=== PATIENT | male | born 1980 | race Caucasian/White ===

== ENCOUNTER 2024-06-04 14:55 | Outpatient (AMB) | payer OTHER, SELFPAY ==
--- NOTE | 2024-06-04 14:57 | MHC.PC.OV ---
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 ?? Prior PCP:?Abraham Luz Maria Last office visit/CPE:? 7-8 mos checkup. CPE > 1 yr Acute issue(s):? Weakness/Fall x 3. Pt feels a brief tightness in low back and then weaknsess and falls down. 1st episode during Mowing lawn and after long walks. 2nd episode walking but < 1mile. No precceding sensations. 3rd episode was Jan 2024. [employer] and stepping onto Escalator. No loss of urine or glen Had Xray of low back at [facility] in December 2023 - Negative. ?? 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 SurgHx:? Colonscopy December for Strong FH ColonCA FHx:? Mom: Mom: Breast CA, Stomach Mass (benign), Brain tumor. Dad: Pacemaker, Skin CA. Maternal GPs: Colon CA SocHx: Nonsmoker. EtOH 2-3 about 2 days a week. 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 1. Little interest or pleasure in doing things: not at all 2. Feeling down, depressed, or hopeless: not at all 3. Trouble falling or staying asleep, or sleeping too much: not at all 4. Feeling tired or having little energy: several days 5. Poor appetite or overeating: not at all 6. Feeling bad about yourself - or that you are a failure or have let yourself or your family down: not at all 7. Trouble concentrating on things, such as reading the newspaper or watching television: not at all 8. Moving or speaking so slowly that other people could have noticed. Or the opposite - being so fidgety or restless that you have been moving around a lot more than usual: not at all 9. Thoughts that you would be better off or of hurting yourself in some way: not at all Total score: 1 Depression Screening Interpretation: Negative Depression Screening Done: Yes 42225 - PHQ-9 Billing: Yes Source: Developed by Drs. Bob Kam, Jossy Romero, Deon Puente and colleagues, with an educational mai from [employer]. Thrive Questionnaire Date Thrive assessed: 06/04/24 I am a: Patient What is your living situation today?: I have a steady place to live Within the past 12 months, did the food you bought not last and you didn't have the money to get more?: Never true Within the past 12 months, did you worry whether your food would run out before you got money to buy more?: Never true Do you have trouble paying for medicines?: No Do you have trouble getting transportation to medical appointments?: No Do you have trouble paying your heating and electricity bill?: No Do you have trouble taking care of your child, family member or friend?: No Do you have trouble with day-to-day activities such as bathing, preparing meals, shopping, managing finances, etc.?: No Are you currently unemployed and looking for a job?: No Are you interested in more education?: No Please select the resources that you would like help with: None Currently or been in a relationship where the following occur: No concerns reported THRIVE Score: 0 AUDIT C Alcohol Use Questionnaire (AUDIT-C) 1. How often do you have a drink containing alcohol?: 2-3 times a week 2. How many drinks containing alcohol do you have on a typical day when you are drinking?: 3 or 4 3. How often do you have six or more drinks on one occasion?: Less than monthly Total Score: 5 ABEL-7 AMB Questionnaire ABEL-7 Date ABEL - 7 assessed: 06/04/24 Feeling nervous, anxious, or on edge: 3 = Nearly every day Not being able to stop or control worryin = Several days Worrying too much about different things: 1 = Several days Trouble relaxin = Several days Being so restless that it is hard to sit still: 0 = Not at all Becoming easily annoyed or irritable: 0 = Not at all Feeling afraid as if something awful might happen: 0 = Not at all Total ABEL-7 score (0-4 normal; 5-9 mild; 10-14 moderate; 15-21 severe): 6 Source: Developed by Drs. Bob Kam, Jossy Romero, Deon Puente and colleagues, with an educational mai from [employer]. ABEL-7 Assessment Billing ABEL-7 Assessment Tool: ABEL-7 Assessment 81311 Review of Systems Const Denies chills, Denies fatigue, Denies fever(s), Denies headache(s) and Denies weakness ENT Denies dizziness and Denies headache(s) Card Denies chest pain, Denies lightheadedness, Denies dyspnea and Denies other (Palpitations) Resp Denies cough, Denies dyspnea, Denies wheezing and Denies other ( shortness of breath) Musc Denies numbness and Denies tingling Neuro Denies dizziness, Denies headache(s), Denies numbness, Denies tingling, Denies paresthesias and Denies weakness Psych Denies anxiety and Denies depression Endo Denies fatigue Aller/Immun Denies wheezing Physical exam (Primary Care) Vital Signs: Last Vital Signs Temp 98.0 F 06/04/24 15:18 Pulse 73 06/04/24 15:18 Resp 16 01/09/25 15:18 BP 127/77 06/04/24 15:18 Pulse Ox 98 06/04/24 15:18 Oxygen Delivery Method Room Air 06/04/24 15:18 BMI result Body Mass Index 33.0 Tobacco/Smoking Status: Tobacco use Status Tobacco use date assessed 06/04/24 06/04/24 15:18 Patient Tobacco Use Status Never used Tobacco 06/04/24 15:18 e-Cigarette/Vaping Use Never Used 06/04/24 15:18 PHQ-9: PHQ-9 Score PHQ-9: Total score 1 06/04/24 15:49 Depression Screening Interpretation: Negative Thrive Assessment: Date of Thrive Assessment Date Thrive assessed 06/04/24 06/04/24 14:58 Currently or been in a relationship where the following occur: No concerns reported Const General: no acute distress and well developed Nutritional Appearance: well nourished Orientation/consciousness: patient oriented x3 HENMT Head: Yes normocephalic and Yes atraumatic Eyes General: appearance normal, both eyes and all related structures Pupils: Equal, round and reactive pupils present EOM: EOMs intact bilaterally Resp Effort & Inspection: normal respiratory effort Auscultation: clear to auscultation bilaterally Cardio Rate: regular rate Rhythm: regular rhythm Heart sounds: S1 normal heart sound present, S2 normal heart sound present, no gallops, no murmurs and no rubs Neuro Other: Increased shakiness with extension of his leg against resistance on the L L 1+ reflex, R 3+ reflex General: patient oriented x3 Cranial nerves: Yes Equal, round and reactive pupils present Psych Affect: normal affect Coding Level of Care Code New Pt Level 4 (00462) Diagnoses Lower extremity weakness R29.898 Fall W19.XXXA Abnormal reflexes of lower extremity R29.2 Back pain M54.9 History of seizure Z87.898 Laboratory exam ordered as part of routine general medical examination Z00.00 Additional Codes ABEL-7 Assessment Billing - ABEL-7 Assessment Tool: ABEL-7 Assessment 36837 ([id number]) PHQ-9 - 28047 - PHQ-9 Billing: Yes ([id number]) Assessment & Plan Assessment & Plan (1) Lower extremity weakness: Code(s): R29.898 - Other symptoms and signs involving the musculoskeletal system Category: Medical Plan: Lower?extremity?weakness?and?fall?times?3, possibly?associated?with?exertion. However,?patient?does?have?a?history?of?petite?mal?seizures?as?a?child Patient?does?seem?to?have?some?lower?extremity?weakness?and?shakiness?with?extension?of?his?leg?against?resistance?on?the?left?and?also?some?diminished?reflex?at?left?verses?right. Denies?any?loss?of?bowel?or?bladder?function. No?weakness,?dizziness?or?diaphoresis. Had?x-rays?and?I?will?request?them. Will?refer?to?Neurology?to?consider?EMG?or?imaging. Advised?he?go?to?the?ED?if?this?occurs?again. Also?checking?labs?including?CBC,?inflammatory?markers?autoimmune?markers?and?Lyme?titer (2) Fall: Code(s): W19.XXXA - Unspecified fall, initial encounter Category: Medical Plan: As?above (3) Abnormal reflexes of lower extremity: Code(s): R29.2 - Abnormal reflex Category: Medical Plan: As?above (4) Back pain: Code(s): M54.9 - Dorsalgia, unspecified Category: Medical Plan: Leave?very?brief?low?back?pain?or?tightness?just?prior?to?weakness?in?legs?and?fall. Awaiting?x-rays Refer?to?Urology (5) History of seizure: Code(s): Z87.898 - Personal history of other specified conditions Category: Medical Plan: As?above (6) Laboratory exam ordered as part of routine general medical examination: Code(s): Z00.00 - Encounter for general adult medical examination without abnormal findings Category: Medical Plan: Check?labs Orders: Orders Comprehensive [place]. Panel Fast 06/04/24 Z00.00 - Encounter for general adult medical examination without abnormal findings UA and rflx microscopic 06/04/24 Z00.00 - Encounter for general adult medical examination without abnormal findings TSH reflex Free T4 06/04/24 Z00.00 - Encounter for general adult medical examination without abnormal findings Erythrocyte Sedimentation Rate 06/04/24 R29.898 - Other symptoms and signs involving the musculoskeletal system CRP High Sensitivity 06/04/24 R29.898 - Other symptoms and signs involving the musculoskeletal system NIKI Reflex Titer and Pattern 06/04/24 R29.898 - Other symptoms and signs involving the musculoskeletal system Lyme IgG/IgM w/reflex to WB 06/04/24 R29.898 - Other symptoms and signs involving the musculoskeletal system Lipid Panel 06/04/24 Z00.00 - Encounter for general adult medical examination without abnormal findings Microalbumin, Random (w Creat) 06/04/24 I10 - Essential (primary) hypertension Prostate Specific Antigen Scr 06/04/24 Z12.5 - Encounter for screening for malignant neoplasm of prostate Complete Blood Count Auto Diff 06/04/24 R29.898 - Other symptoms and signs involving the musculoskeletal system, Z00.00 - Encounter for general adult medical examination without abnormal findings Referrals Neurology Referral R29.898 - Other symptoms and signs involving the musculoskeletal system, W19.XXXA - Unspecified fall, initial encounter, Z87.898 - Personal history of other specified conditions
[2024-06-04 15:18] VITALS: BP 127/77; PULSE 73; RESP 16; TEMP 36.7; O2SAT 98; BMI 33.0
== END 2024-06-04 16:18 | disposition home or self-care (01) ==
PROVIDERS: PCP Family Medicine; Visit Provider Family Medicine
DX: R29.898 Other symptoms and signs involving the musculoskeletal system (principal); W19.XXXA Unspecified fall, initial encounter; R29.2 Abnormal reflex; M54.9 Dorsalgia, unspecified; Z87.898 Personal history of other specified conditions; Z00.00 Encounter for general adult medical examination without abnormal findings

== ENCOUNTER → 2024-06-04 14:55 | Outpatient (BNVA) | payer OTHER, SELFPAY | PROVIDERS: Visit Provider Family Medicine | DX: R29.898 Other symptoms and signs involving the musculoskeletal system (principal); R29.2 Abnormal reflex; M54.50 Low back pain, unspecified; Z87.898 Personal history of other specified conditions; Z91.81 History of falling | CPT/HCPCS: 96127 ==

== ENCOUNTER 2024-07-04 08:30 | Outpatient (REF) | payer OTHER, SELFPAY ==
[2024-07-04 09:40] LABS: MANUAL DIFF FLAG NO
[2024-07-04 10:51] LABS: Basophils Percent Auto 0.6 % (0-2); Eosinophils Absolute Auto 0.1 X10*3/uL (0.0-0.4); Eosinophils Percent Auto 0.8 % (0-4); Hemoglobin 15.4 g/dl (14.0-18.0); Imm Gran Abs Auto 0.03 X10*3/uL (0.00-0.03); Imm Gran Pct Auto 0.5 % (0.0-0.4); Lymphocytes Absolute Auto 1.6 X10*3/uL (1.2-4.9); Lymphocytes Percent Auto 25.6 % (20-40); Mean Corpuscular HGB Conc 34.2 g/dl (31.0-36.0); Mean Corpuscular Hemoglobin 31.1 pg (27.0-33.0); Mean Corpuscular Volume 90.9 fL (80.0-98.0); Mean Platelet Volume 10.3 fL (9.4-12.4); Monocytes Absolute Auto 0.6 X10*3/uL (0.1-1.2); Monocytes Percent Auto 8.9 % (2-11); Neutrophils Absolute Auto 3.9 x10*3/uL (2.0-8.3); Neutrophils Percent Auto 63.6 % (45-73); Platelet Count 230 X10*3/uL (160-400); Red Blood Count 4.95 X10*6/uL (4.60-5.80); Red Cell Distribution Width 12.6 % (11.0-16.0); White Blood Count 6.2 X10*3/uL (4.8-10.8)
[2024-07-04 11:31] LABS: Erythrocyte Sedimentation Rate 5 MM/HR (0-15)
[2024-07-04 11:56] LABS: Alanine Aminotransferase 62 U/L (0-40); Albumin Level 4.7 g/dL (3.5-5.0); Alkaline Phosphatase 71 U/L (39-117); Anion Gap 12 (12-20); Aspartate Amino Transferase 32 U/L (5-37); Bilirubin Total 0.6 mg/dL (0.0-1.0); Blood Urea Nitrogen 14 mg/dL (9-16); Calcium 9.1 mg/dL (8.4-10.2); Carbon Dioxide 26 mmol/L (22-29); Chloride 107 mmol/L (96-108); Cholesterol 216 mg/dL (<200); Estimated Glomerular Filt Rate > 60; Glucose Fasting 94 mg/dL (60-99); HDL Cholesterol 49 mg/dL (>40); LDL Cholesterol Calculated 154 mg/dL (<100); Potassium 4.5 mmol/L (3.3-5.1); Sodium 140 mmol/L (135-145); TSH reflex Free T4 0.51 uIU/mL (0.32-4.0); Total Protein 7.9 g/dL (6.5-8.0); Triglycerides 66 mg/dL (<150)
[2024-07-04 12:02] LABS: Prostate Specific Antigen Scr 0.41 ng/mL (<0.05-4.0)
[2024-07-06 07:47] LABS: CRP High Sensitivity 0.5 mg/L
[2024-07-06 22:44] LABS: Lyme Abs Screen <0.90 index
[2024-07-10 14:29] LABS: Anti Nuclear Antibody Screen NEGATIVE (NEGATIVE)
== END 2024-07-04 08:31 | disposition home or self-care (01) ==
LOC: HO.LAB 08:30
PROVIDERS: PCP Family Medicine; Visit Provider Family Medicine
DX: Z00.00 Encounter for general adult medical examination without abnormal findings (principal); R29.898 Other symptoms and signs involving the musculoskeletal system; Z12.5 Encounter for screening for malignant neoplasm of prostate
CPT/HCPCS: 36415; 80053; 80061; 84153; 84443; 85025; 85652; 86038; 86141; 86617; 86618

== ENCOUNTER 2024-07-09 13:54 | Outpatient (AMB) | payer OTHER, SELFPAY ==
--- NOTE | 2024-07-09 14:12 | A.OFFPC_ITS ---
Vital Signs 07/09/24 14:20 Height 6 ft Weight 243 lb 6 oz BMI 33.0 BP 126/78 Blood Pressure Location Lt brachial Position Sitting Respiration 14 Pulse 66 Pulse Source Pulse Oximeter Temp 97.5 F Temp Source Oral Pulse Oximetry (%) 97 Oxygen Delivery Method Room Air Intake Visit Reasons: CPE with f/u labs and health maint Intake Note: CPE and lab review Allergies No Known Allergies Allergy (Verified 07/09/24 14:14) Medication List - Last Reconciled 07/09/24 by Marco Merchant MD No Known Home Meds Tobacco use date assessed: 07/09/24 Dental Screening Dental Screen Date: 07/09/24 Did you have a dental visit in the last 12 months?: Yes Did you have a dental problem in the last 6 months where you did not have access to dental care?: Yes Was dental information given to patient?: No HPI CPE with f/u labs and health maint HPI Details 43 y/o male presents for a CPE with f/u labs and health maintenance. Labs drawn 07/04/24. Reviewed labs with pt. Elevated ALT of 62. Triglycerides 66. TC 216. LDL 154. HDL 49. PSA 0.41. Had referred him to Neurology for lower extremity weakness, abnormal reflexes of LE. HPI Comments History of Present Illness Details Documentation assistance for Marco Merchant MD, was provided by Ezekiel Martin, Slasher Operator on 07/09/2024 at 2:51 PM EST. I, Dr. Merchant, have read, observed, and verified documentation. 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 1. Little interest or pleasure in doing things: not at all 2. Feeling down, depressed, or hopeless: not at all 3. Trouble falling or staying asleep, or sleeping too much: not at all 4. Feeling tired or having little energy: more than half the days 5. Poor appetite or overeating: not at all 6. Feeling bad about yourself - or that you are a failure or have let yourself or your family down: not at all 7. Trouble concentrating on things, such as reading the newspaper or watching television: not at all 8. Moving or speaking so slowly that other people could have noticed. Or the opposite - being so fidgety or restless that you have been moving around a lot more than usual: not at all 9. Thoughts that you would be better off or of hurting yourself in some way: not at all Total score: 2 Depression Screening Interpretation: Negative Depression Screening Done: Yes 33703 - PHQ-9 Billing: Yes Source: Developed by Drs. Bob Kam, Jossy Romero, Deon Puente and colleagues, with an educational mai from [employer]. Thrive Questionnaire Date Thrive assessed: 07/09/24 I am a: Patient What is your living situation today?: I have a steady place to live Within the past 12 months, did the food you bought not last and you didn't have the money to get more?: Never true Within the past 12 months, did you worry whether your food would run out before you got money to buy more?: Never true Do you have trouble paying for medicines?: No Do you have trouble getting transportation to medical appointments?: No Do you have trouble paying your heating and electricity bill?: No Do you have trouble taking care of your child, family member or friend?: No Do you have trouble with day-to-day activities such as bathing, preparing meals, shopping, managing finances, etc.?: No Are you currently unemployed and looking for a job?: No Are you interested in more education?: No Please select the resources that you would like help with: None Currently or been in a relationship where the following occur: No concerns reported THRIVE Score: 0 AUDIT C Alcohol Use Questionnaire (AUDIT-C) 1. How often do you have a drink containing alcohol?: 2-3 times a week 2. How many drinks containing alcohol do you have on a typical day when you are drinking?: 3 or 4 3. How often do you have six or more drinks on one occasion?: Weekly Total Score: 7 Score Reviewed/Action Taken: Yes ABEL-7 AMB Questionnaire ABEL-7 Date ABEL - 7 assessed: 07/09/24 Feeling nervous, anxious, or on edge: 1 = Several days Not being able to stop or control worryin = Not at all Worrying too much about different things: 1 = Several days Trouble relaxin = Not at all Being so restless that it is hard to sit still: 0 = Not at all Becoming easily annoyed or irritable: 0 = Not at all Feeling afraid as if something awful might happen: 0 = Not at all Total ABEL-7 score (0-4 normal; 5-9 mild; 10-14 moderate; 15-21 severe): 2 Source: Developed by Drs. Bob Kam, Jossy Romero, Deon Puente and colleagues, with an educational mai from [employer]. ABEL-7 Assessment Billing ABEL-7 Assessment Tool: ABEL-7 Assessment 88975 Review of Systems Const Denies chills, Denies fatigue, Denies fever(s), Denies headache(s) and Denies weakness Eyes Denies change in vision ENT Denies dizziness, Denies headache(s), Denies hearing loss, Denies nasal co ngestion, Denies sinus pain, Denies sinus pressure and Denies sore throat Card Denies chest pain, Denies lightheadedness, Denies dyspnea and Denies other (palpitations) Resp Denies cough, Denies dyspnea and Denies wheezing GI Denies abdominal pain, Denies melena, Denies hematochezia, Denies change in bowel habits, Denies dyspepsia and Denies nausea Denies hematuria and Denies dysuria Musc Denies abnormal gait, Denies myalgias, Denies arthralgias, Denies numbness and D enies tingling Skin/Breast Denies rash, Denies unusual bruising and Denies wounds Neuro Denies abnormal gait, Denies dizziness, Denies headache(s), Denies memory loss, Denies numbness, Denies Sensory deficit (Neuro), Denies tingling and Denies weakness Psych Denies anxiety, Denies depression and Denies memory loss Endo Denies cold intolerance, Denies fatigue, Denies heat intolerance, Denies polydipsia and Denies polyuria Richar/Lymph Denies easy bleeding and Denies easy bruising Aller/Immun Denies wheezing Physical exam (Primary Care) Vital Signs: Last Vital Signs Temp 97.5 F 07/09/24 14:20 Pulse 66 07/09/24 14:20 Resp 14 07/09/24 14:20 BP 126/78 07/09/24 14:20 Pulse Ox 97 07/09/24 14:20 Oxygen Delivery Method Room Air 07/09/24 14:20 BMI result Body Mass Index 33.0 Tobacco/Smoking Status: Tobacco use Status Tobacco use date assessed 07/09/24 07/09/24 14:23 Patient Tobacco Use Status Never used Tobacco 07/09/24 14:12 e-Cigarette/Vaping Use Never Used 07/09/24 14:12 PHQ-9: PHQ-9 Score PHQ-9: Total score 2 07/09/24 14:23 Depression Screening Interpretation: Negative Thrive Assessment: Date of Thrive Assessment Date Thrive assessed 07/09/24 07/09/24 14:23 Currently or been in a relationship where the following occur: No concerns reported Const General: no acute distress, well developed, alert and awake Nutritional Appearance: well nourished Orientation/consciousness: patient oriented x3 HENMT Head: Yes normocephalic and Yes atraumatic Ears: hearing grossly normal bilaterally and TM's normal bilaterally General nose exam: Normal external nose present and Normal nares present Mouth: Normal oral and palatal mucosa present and moist mucous membranes Teeth and gingiva: dentition normal Throat: Yes posterior oropharynx normal Eyes General: appearance normal, both eyes and all related structures Pupils: Equal, round and reactive pupils present and Pupil accommodation reflex normal EOM: EOMs intact bilaterally Neck Neck: Yes normal visual inspection, Yes no lymphadenopathy and Yes trachea midline Thyroid: Thyroid normal Carotids: no bruits Lymphatic: no lymphadenopathy noted Chest Chest palpation & inspection: normal inspection of the chest Resp Effort & Inspection: normal respiratory effort Auscultation: clear to auscultation bilaterally Cardio Rate: regular rate Rhythm: regular rhythm Heart sounds: S1 normal heart sound present, S2 normal heart sound present, no g allops, no murmurs and no rubs Bruits: no abdominal aortic bruits and no carotid bruits GI Palpation (GI): No Abdominal aortic bruit present, Soft to palpation, nontender, No hepatosplenomegaly present and No Rebound tenderness present Auscultation: normal bowel sounds General: Yes no CVA tenderness Back/Spine/Pelvis Back: no CVA tenderness Cervical Spine: cervical ROM normal and No Cervical spine tenderness Thoracic/Lumbar Spine: thoraco-lumbar ROM normal, No pain with thoraco-lumbar ROM, No thoracic spinal tenderness and No lumbar spinal tenderness Skin Lesions: no lesions Rashes: no rashes Trauma: no lacerations or abrasions Wounds: no wounds Nails: normal Neuro General: patient oriented x3 Cranial nerves: Yes Equal, round and reactive pupils present Cognition (Neuro): normal cognition Gait exam (Neuro): Normal gait present Motor exam (neuro): 5/5 motor strength present throughout Sensory Exam: No Sensory deficit (Neuro) Deep tendon reflexes (DTR's): Right patellar reflex intensity grade: 2+ and Left patellar reflex intensity grade: 2+ Extrem General: Yes normal to inspection and No edema Psych Appearance: grossly normal Affect: normal affect Attitude: cooperative Thought process: Normal thought process present Coding Level of Care Code Est Pt Level 3 (71172) Est Pt Prev Care 40-64y(49628) Diagnoses Adult general medical exam Z00.00 Elevated ALT measurement R74.01 Hypercholesterolemia E78.00 Screening for prostate cancer Z12.5 Constipation K59.00 Lower extremity weakness R29.898 Additional Codes ABEL-7 Assessment Billing - ABEL-7 Assessment Tool: ABEL-7 Assessment 53018 ([id number]) PHQ-9 - 65218 - PHQ-9 Billing: Yes ([id number]) Assessment & Plan Assessment & Plan (1) Adult general medical exam: Code(s): Z00.00 - Encounter for general adult medical examination without abnormal findings Category: Medical Plan: 43-year-old?male?presents?for?complete?physical?exam Encouraged?healthy?diet?with?active?lifestyle?and? plenty?of?exercise?as?tolerated (2) Elevated ALT measurement: Code(s): R74.01 - Elevation of levels of liver transaminase levels Category: Medical Plan: Mild/moderate?elevation?in?ALT.??AST?within?limits Will?recheck?with?next?blood?draw.??Encourag ed?patient?to?hydrate?well,?work?at?weight?loss,?avoid?Tylenol?alcohol?prior?to? testing Will?discuss?at?next?visit (3) Hypercholesterolemia: Code(s): E78.00 - Pure hypercholesterolemia, unspecified Category: Medical Plan: LDL?cholesterol?is?too?high. Encouraged?weight?loss?and?a?diet?lower?in?saturated?fats?and?cholesterol Will?recheck?prior?to?next?visit?and?review?with?patient (4) Screening for prostate cancer: Code(s): Z12.5 - Encounter for screening for malignant neoplasm of prostate Category: Medical Plan: PSA?is?within?limits Will?continue?annual?screening (5) Constipation: Code(s): K59.00 - Constipation, unspecified Category: Medical Plan: Patient?is?hydrating?well?now?and?I?encouraged?this Can?also?try?soluble?fiber Avoid?trigger?foods?such?as?dairy (6) Lower extremity weakness: Code(s): R29.898 - Other symptoms and signs involving the musculoskeletal system Category: Medical Plan: As?discussed?at?prior?visit,?patient?has?episodes?of?back?discomfort,?shakiness? and?lower?extremity?weakness Lab?work?has?been?unrevealing I?have?referred?him?to?Neurology?as?he?also?has?had?a?distant?history?of?seizure s Patient?says?he?now?has?appointment?scheduled
[2024-07-09 14:20] VITALS: BP 126/78; PULSE 66; RESP 14; TEMP 36.4; O2SAT 97; BMI 33.0
== END 2024-07-09 15:00 | disposition home or self-care (01) ==
PROVIDERS: PCP Family Medicine; Visit Provider Family Medicine
DX: Z00.00 Encounter for general adult medical examination without abnormal findings (principal); R74.01 Elevation of levels of liver transaminase levels; E78.00 Pure hypercholesterolemia, unspecified; Z12.5 Encounter for screening for malignant neoplasm of prostate; K59.00 Constipation, unspecified; R29.898 Other symptoms and signs involving the musculoskeletal system

== ENCOUNTER → 2024-07-09 13:54 | Outpatient (BNVA) | payer OTHER, SELFPAY | PROVIDERS: PCP Family Medicine; Visit Provider Family Medicine | DX: Z00.00 Encounter for general adult medical examination without abnormal findings (principal); R74.01 Elevation of levels of liver transaminase levels; E78.00 Pure hypercholesterolemia, unspecified; K59.00 Constipation, unspecified; R29.898 Other symptoms and signs involving the musculoskeletal system | CPT/HCPCS: 96127 ==

== ENCOUNTER 2024-10-03 07:45 | Outpatient (REF) | payer OTHER, SELFPAY ==
[2024-10-03 09:13] LABS: Appearance Urine Clear; Color Urine Yellow; Glucose Urine UA Negative (Negative); Leukocyte Esterase Urine Negative (Negative); Nitrite Urine Negative (Negative); Urine Blood Negative (Negative); Urine Ketones Negative (Negative); Urine Protein Negative (Neg-Trace)
[2024-10-03 10:00] LABS: Alanine Aminotransferase 111 U/L (0-40); Albumin Level 4.5 g/dL (3.5-5.0); Alkaline Phosphatase 122 U/L (39-117); Anion Gap 13 (12-20); Aspartate Amino Transferase 47 U/L (5-37); Bilirubin Total 0.7 mg/dL (0.0-1.0); Blood Urea Nitrogen 12 mg/dL (9-16); Calcium 9.1 mg/dL (8.4-10.2); Carbon Dioxide 26 mmol/L (22-29); Chloride 107 mmol/L (96-108); Cholesterol 194 mg/dL (<200); Estimated Glomerular Filt Rate > 60; Glucose Fasting 102 mg/dL (60-99); HDL Cholesterol 45 mg/dL (>40); LDL Cholesterol Calculated 125 mg/dL (<100); Potassium 3.9 mmol/L (3.3-5.1); Sodium 142 mmol/L (135-145); Total Protein 7.4 g/dL (6.5-8.0); Triglycerides 121 mg/dL (<150)
[2024-10-03 10:06] LABS: Creatinine Urine 168.25 mg/dL; Microalbumin Urine < 5.0 mg/L
== END 2024-10-03 07:46 | disposition home or self-care (01) ==
LOC: HO.LAB 07:45
PROVIDERS: PCP Family Medicine; Visit Provider Family Medicine
DX: Z00.00 Encounter for general adult medical examination without abnormal findings (principal); R74.01 Elevation of levels of liver transaminase levels; I10 Essential (primary) hypertension; E78.00 Pure hypercholesterolemia, unspecified
CPT/HCPCS: 36415; 80053; 80061; 81003; 82043; 82570

== ENCOUNTER 2024-10-07 15:37 | Outpatient (AMB) | payer OTHER, SELFPAY ==
--- NOTE | 2024-10-07 15:36 | A.OFFPC_ITS ---
Intake Visit Reasons: f/u liver enzymes, cholesterol Allergies No Known Allergies Allergy (Verified 10/07/24 15:36) Tobacco use date assessed: 07/09/24 Dental Screening Dental Screen Date: 07/09/24 HPI f/u liver enzymes, cholesterol HPI Details 43 y/o male presents to f/u elevated ALT , HLD. Also following up on LE weakness for which he is referred to neurology. Distant hx of seizure disorder. Had seen Neurology 07/14/24. They plan to follow up after eeg. Labs drawn 10/03/24. Reviewed labs with pt. Fasting glucose 102. AST 47. ALT 111. Triglycerides 121. TC 194. LDL 125. HDL 45. Pt reports situational anxiety that seems to be worsening. 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 Current occupational exposures/hazards: No Cognitive needs: No Hearing needs: No Vision needs: Yes Questionnaire Thrive Questionnaire Date Thrive assessed: 06/04/24 I am a: Patient What is your living situation today?: I have a steady place to live Within the past 12 months, did the food you bought not last and you didn't have the money to get more?: Never true Within the past 12 months, did you worry whether your food would run out before you got money to buy more?: Never true Do you have trouble paying for medicines?: No Do you have trouble getting transportation to medical appointments?: No Do you have trouble paying your heating and electricity bill?: No Do you have trouble taking care of your child, family member or friend?: No Do you have trouble with day-to-day activities such as bathing, preparing meals, shopping, managing finances, etc.?: No Are you currently unemployed and looking for a job?: No Are you interested in more education?: No Please select the resources that you would like help with: None Currently or been in a relationship where the following occur: No concerns reported THRIVE Score: 0 ABEL-7 AMB Questionnaire ABEL-7 Date ABEL - 7 assessed: 07/09/24 Source: Developed by Drs. Bob Kam, Jossy Romero, Deon Puente and colleagues, with an educational mai from [employer]. Review of Systems Const Denies chills, Denies fatigue, Denies fever(s), Denies headache(s) and Denies weakness ENT Denies dizziness and Denies headache(s) Card Denies dyspnea Resp Denies cough, Denies dyspnea, Denies wheezing and Denies other (shortness of breath) Musc Denies numbness and Denies tingling Neuro Denies dizziness, Denies headache(s), Denies numbness, Denies tingling and Denies weakness Psych Denies anxiety and Denies depression Endo Denies fatigue Aller/Immun Denies wheezing Physical exam (Primary Care) Tobacco/Smoking Status: Tobacco use Status Tobacco use date assessed 07/09/24 10/07/24 15:36 Patient Tobacco Use Status Never used Tobacco 10/07/24 15:36 e-Cigarette/Vaping Use Never Used 10/07/24 15:36 Thrive Assessment: Date of Thrive Assessment Date Thrive assessed 06/04/24 10/07/24 15:36 Currently or been in a relationship where the following occur: No concerns reported Telehealth Telehealth Telehealth Platform: Telephone Location of provider rendering services: practice address Location of patient: address on file Patient Identification confirmed using: Name, : Yes Telehealth method: voice only Patient verbally consented to treatment: Yes Patient verbally consented to billing insurance company: Yes Patient informed of any privacy concerns related to visit: Yes Minutes spent on Phone/Video with Pt.: 9 Coding Level of Care Code Tele Est Pt Level 2 (03951) Diagnoses Elevated liver enzymes R74.8 Hypercholesterolemia E78.00 History of seizure Z87.898 Fall W19.XXXA Anxiety F41.9 Assessment & Plan Assessment & Plan (1) Elevated liver enzymes: Code(s): R74.8 - Abnormal levels of other serum enzymes Category: Medical Plan: Liver?enzymes?have?risen?further Will?check?ultrasound (2) Hypercholesterolemia: Code(s): E78.00 - Pure hypercholesterolemia, unspecified Category: Medical Plan: Patient?has?made?significant?improvement?in?LDL?cholesterol Continue?working?on?lifestyle?changes Will?continue?to?follow (3) History of seizure: Code(s): Z87.898 - Personal history of other specified conditions Category: Medical Plan: History?of?possible?seizure-like?activity vs syncope Neurology?workup?so?far?includes?MRI?in?EEG.??I?do?not?have?re sults?from?these.??Patient?reports?they?were?okay. At?this?point,?leaning?rather?towards?syncope?and?will?make?a?referral?to?Cardio logy He?has?another?follow-up?appointment?with?Neurology?as?well. (4) Fall: Code(s): W19.XXXA - Unspecified fall, initial encounter Category: Medical Plan: As?above (5) Anxiety: Code(s): F41.9 - Anxiety disorder, unspecified Category: Medical Plan: Patient?noticing?anxiety?in?social?situations Start?bupropion Orders: Orders Comprehensive [place]. Panel Fast Today R74.8 - Abnormal levels of other serum enzymes, Z00.00 - Encounter for general adult medical examination without abnormal findings US abdomen bolden w elastography Today R74.8 - Abnormal levels of other serum enzymes Lipid Panel Today E78.00 - Pure hypercholesterolemia, unspecified, Z00.00 - Encounter for general adult medical examination without abnormal findings Referrals Cardiology Referral R55 - Syncope and collapse Medications: New bupropion HCl 75 mg PO BID 30 days 60 tabs 1RF
--- OUTSIDE RECORDS SUMMARY | 2024-10-07 15:41 | XMS_ITS | Encounter Summary ---
Author Organization [facility] Address [address] [place] [address] Care Team Providers Care Bridge Design Engineer Name Role Phone Soraya Mccollum DO Primary Care Pro vider Encounter Details Date Type Department Care Team (Late st Contact Info) Description 10/02/[address] [facility] Neurodiagnostic [address] [place] [phone] Nataliya Montano MD [address] [place] [address] [place] [address] Seizure disorder (CMS/HCC V24, CMS/HCC V28) Social History Tobacco Use Types Packs/Day Years Used Date Smoking Tobacco: Never Smokeless Tobacco: Never Alcohol Use Standard Drinks/Week Comments Yes 0 (1 standard drink = 0.6 oz pur e alcohol) Sex and Gender Information Value Date Recorded Sex Assigned at Not on file Legal Sex Male 10:30 PM EST Gender Identity Not on file Sexual Orientation Not on file documented as of this encounter Plan of Treatment Upcoming Encounters Date Type Department Care Team (Late st Contact Info) Description 01/04/2025 8:[address] [facility] Neurodiagnostic [address] [place] [address] 01/05/2025 9:[address] [facility] Neurodiagnostic [address] [place] [address] 01/06/2025 9:[address] [facility] Neurodiagnostic [address] [place] [address] documented as of this encounter Visit Diagnoses Diagnosis Seizure disorder (CMS/[facility] V24, CMS/[facility] V28) Unspecified epilepsy without mention of intractable epilepsy documented in this encounter Orders Neurology Count Last Ordered Date First Orde red Date CONTINUOUS EEG 1 10/02/2024 documented in this encounter Care Teams Bridge Design Engineer Relationship Specialty Start Date End Date Soraya Mccollum DO PCP - General Internal Medicine 11/09/15 documented as of this encounter
--- OUTSIDE RECORDS SUMMARY | 2024-10-07 15:41 | XMS_ITS | Encounter Summary ---
Author Organization [facility] Address [address] [place] [address] Care Team Providers Care Inspector Repairer Name Role Phone Soraya Grady DO Primary Care Pro vider Unavailable Community, Pcp Primary Care Provider Lauren Ray DNP Primary Care Provider Danisha correa Encounter Details Date Type Department Care Team Description 01/03/2016 Senior Designer Report Medical Records [address] [place] [address] Renetta Hernández PA-C Social History Tobacco Use Types Packs/Day Years Used Date Smoking Tobacco: Never Alcohol Use Standard Drinks/Week Comments Yes 0 (1 standard drink = 0.6 oz pur e alcohol) 2-3 times a week Sex Assigned at Date Recorded Male 05/27/2021 12:11 PM EST documented as of this encounter Plan of Treatment Not on file documented as of this encounter Visit Diagnoses Not on filedocumented in this encounter Care Teams Inspector Repairer Relationship Specialty Start Date End Date Soraya Grady DO PCP - General Internal Medicine 11/09/15 11/13/22 Tejinder, Pcp PCP - General Internal Medicine 11/14/22 12/09/23 Lauren Rosario DNP PCP - General Family Practice 12/10/23 documented as of this encounter
--- OUTSIDE RECORDS SUMMARY | 2024-10-07 15:41 | XMS_ITS | Encounter Summary ---
Author Organization [facility] Address [address] [place] [address] Care Team Providers Care Bushler Name Role Phone Soraya cMcollum DO Primary Care Pro vider Encounter Details Date Type Department Care Team (Late st Contact Info) Description 10/05/2024 Lab [facility] Neurodiagnostic [address] [place] [phone] Nataliya Montano MD [address] [place] [address] [place] [address] Seizure disorder (CMS/HCC V24, CMS/HCC V28) Social [...] Info) Description 01/04/2025 8:00 AM EDT Appointment [facility] Neurodiagnostic [address] [place] [address] 01/05/2025 9:00 AM EDT Appointment [facility] Neurodiagnostic [address] [place] [address] 01/06/2025 9:00 AM EDT Appointment [facility] Neurodiagnostic [address] [place] [address] documented as of this encounter Visit Diagnoses Diagnosis Seizure disorder (CMS/[facility] V24, CMS/[facility] V28) Unspecified epilepsy without mention of intractable epilepsy documented in this encounter Orders Neurology Count Last Ordered Date First Orde red Date CONTINUOUS EEG 1 10/02/2024 documented in this encounter Care Teams Bushler Relationship Specialty Start Date End Date Soraya Mccollum DO PCP - General Internal Medicine 11/09/15 documented as of this encounter
--- OUTSIDE RECORDS SUMMARY | 2024-10-07 15:41 | XMS_ITS | Clinical Summary ---
Author Organization [facility] Address [address] [place] [address] Care Team Providers Care Drama Teacher Name Role Phone Lauren Rosario DNP Primary Care Provider Unava ilable Allergies No known active allergies Medications Medication Sig Dispensed Refills Start Date End Date Status metronidazole (METROCREAM) 0.75 % cream Apply to affected areas, daily or twice daily, as directed 60 g 3 03/02/2019 Active Active Problems Problem Noted Date Post-concussion syndrome 07/13/2013 Overview: Persistent headaches No persistent memory issues. Rosacea 01/11/2010 OBESITY 11/19/2005 Petit mal seizures 11/19/2005 Overview: in childhood.follwed bynuero than and taken off meds at age 12.no seizure shince Immunizations Name Administration Dates Next Due COVID-19 (GATO AND GATO) 07/30/2020 DTP 12/22/1987, 5,07/10/1983,04/03,02/05/1983 HIB 03/17/1985 Hepatitis B > 19yrs 06/04/1997,12/30/1996,1996 Influenza (> 6 Months) 02/09/2015,04/09/2007 MMR (Hqiyhdl-Dwcoe-Huiebux) 11/24/1996, 4 Meningococcal (MENOMUNE) 10/28/2000 PPD-RBMG 06/11/2003,10/30/2000,10/28/2000 Polio (OPV) 12/22/1987, 5,04/03/1983,02/05 TD ([facility] [facility] S [facility] CHILDREN) 11/24/1996 Tdap 12/30/2006 Family History Medical History Relation Name Comments cardiac [Other] Father pacemaker Cancer of the Colon Maternal Grandmother over 75 CA Breast Mother at age 66 Relation Name Status Comments Brother Alive asthma Father Alive both prents hea lthy Maternal Grandmother Mother Alive Social History Tobacco Use Types Packs/Day Years Used Date Smoking Tobacco: Never Smokeless Tobacco: Never Alcohol Use Standard Drinks/Week Comments Yes 0 (1 standard drink = 0.6 oz pur e alcohol) 2-3 times a week; occ Sex Assigned at Date Recorded Male 05/27/2021 12:11 PM EST Last Filed Vital Signs Vital Sign Reading Time Taken Comments Blood Pressure 100/70 06/17/2020 11:18 AM EST C Pulse 64 06/17/2020 11:18 AM EST Temperature 36.9 ??C (98.4 ??F) 06/17/2020 11:[address] Respiratory Rate 18 06/10/2020 2:49 PM EST Oxygen Saturation 98% 05/05/2020 2:19 PM EST Inhaled Oxygen Concentration - - Weight 101.6 kg (224 lb) 06/17/2020 11:18 AM EST Height 185.4 cm (6' 1 ) 06/17/2020 11:18 AM EST Body Mass Index 29.55 06/17/2020 11:18 AM EST Plan of Treatment Health Maintenance Due Date Last Done Comments CHOLESTEROL SCREENING 11/20/2010 11/20/2005 DTAP/TDAP/TD (7 - Td or Tdap) 12/30/2016, 11/24/1996, 12/22/1987, Additional history exists BASELINE HEALTH EXAM 40-64 11/30/202201/09, 07/13/2013, 11/20/2005, Additional history exists Covid-19 Vaccine (2022-06 4 season) 2024 07/30/2020 BMI CHECK/ADVISE 05/27/2024 06/02/2020, 02/2020, 01/10/2016, Additional history exists INFLUENZA (Season Ended) 2025 020 (External Completion of Vaccination per patient), 02/09/2015, 02/09/2015, Additional history exists PNEUMOCOCCAL VACCINE FOR HIG H RISK PATIENTS (#1) 12/01/2047 Care Teams Drama Teacher Relationship Specialty Start Date End Date Lauren Rosario DNP PCP - General Family Practice 12/10/23
--- OUTSIDE RECORDS SUMMARY | 2024-10-07 15:41 | XMS_ITS | Clinical Summary ---
Author Organization [facility] Address [address] [place] [address] Care Team Providers Care Basket Operator Name Role Phone Soraya Mccollum DO Primary Care Pro vider Encounters Date Type Department Care Team Description 10/06/2024 [facility] Neurodiagnostic [address] [place] [phone] Nataliya Montano MD Seizure disorder ([facility] V24, [facility] V28) 10/05/2024 [facility] Neurodiagnostic [address] [place] [phone] Nataliya Montano MD Seizure disorder ([facility] V24, [facility] V28) 10/02/2024 [facility] Neurodiagnostic [address] [place] [phone] Nataliya Montano MD Seizure disorder ([facility] V24, [facility] V28) from Last 3 Months Surgical History Surgery Date Site/Laterality Comments OTHER SURGICAL HISTORY PROCEDURE: DENIES PREVIOUS SURGERY Family History Medical History Relation Name Comments Other: cardiac Father pacemaker Colon cancer Maternal Grandmother over 75 Breast cancer Mother at age 66 Relation Name Status [...] on file Sexual Orientation Not on file Obstetrics History Plan of Treatment Upcoming Encounters Date Type Department Care Team (Late st Contact Info) Description 01/04/2025 8:00 AM EDT Appointment [facility] Neurodiagnostic [address] [place] [address] 01/05/2025 9:00 AM EDT Appointment [facility] Neurodiagnostic [address] [place] [address] 01/06/2025 9:00 AM EDT Appointment [facility] Neurodiagnostic [address] [place] [address] Health Maintenance Due Date Last Done Comments DTaP,Tdap,and Td Vaccines (8 - Td or Tdap) 12/30/2016 12/30/2006, 11/24/1996, 12/22/1987, Additional history exists COVID-19 Vaccine (2 - Jennifer risk series) 08/27/2020 07/30/2020 Cholesterol Screening (Lipid Panel) 04/29/2022 Depression Screening 04/29/2022 HIV Screening 04/29/2022 Hepatitis C Screening 04/29/2022 Social Influencers of Health Screening 04/29/2022 Influenza Vaccine (Season Ended) 2025 02/09/2015, 04/09/2007 HIB Vaccines Completed 03/17/1985 IPV Vaccines Completed 12/22/1987, 02/25, 06/14/1984, Additional history exists MMR Vaccines Completed 11/24/1996, 03/04/1984 Hepatitis B Vaccines Completed 06/04/1997, 12/30/1996, 12/04/1996 Meningococcal ACWY Vaccine Aged Out 10/28/2000 N o longer eligible based on patient's age to complete this topic HPV Vaccines Aged Out No longer eligi ble based on patient's age to complete this topic Hepatitis A Vaccines Aged Out No long er eligible based on patient's age to complete this topic Meningococcal B Vaccine Aged Out No l onger eligible based on patient's age to complete this topic Pneumococcal Vaccine: Pediatrics (0 to 5 Years) and At-Risk Patients (6 to 64 Years) Aged Out No longer eligible based on patient's age to complete this topic RSV Immunization Patients Under 20 months Aged Out No longer eligible based on patient's age to complete this topic Varicella Vaccines Aged Out No longer eligible based on patient's age to complete this topic Insurance [facility] Care Teams Basket Operator Relationship Specialty Start Date End Date Soraya Mccollum DO PCP - General Internal Medicine 11/09/15
--- OUTSIDE RECORDS SUMMARY | 2024-10-07 15:41 | XMS_ITS | Encounter Summary ---
Author Organization [facility] Address [address] [place] [address] Care Team Providers Care Litigation Support Analyst Name Role Phone Soraya Mccollum DO Primary Care Pro vider Encounter Details Date Type Department Care Team (Late st Contact Info) Description 10/06/2024 Lab [facility] Neurodiagnostic [address] [place] [phone] Nataliya Montano MD [address] [place] [address] [place] [address] Seizure disorder (CMS/HCC V24, CMS/HCC V28) Social [...] Info) Description 01/04/2025 8:00 AM EDT Appointment [facility] Neurodiagnostic [address] [place] [address] 01/05/2025 9:00 AM EDT Appointment [facility] Neurodiagnostic [address] [place] [address] 01/06/2025 9:00 AM EDT Appointment [facility] Neurodiagnostic [address] [place] [address] documented as of this encounter Visit Diagnoses Diagnosis Seizure disorder (CMS/[facility] V24, CMS/[facility] V28) Unspecified epilepsy without mention of intractable epilepsy documented in this encounter Orders Neurology Count Last Ordered Date First Orde red Date CONTINUOUS EEG 1 10/06/2024 documented in this encounter Care Teams Litigation Support Analyst Relationship Specialty Start Date End Date Soraya Mccollum DO PCP - General Internal Medicine 11/09/15 documented as of this encounter
== END 2024-10-07 17:05 | disposition home or self-care (01) ==
LOC: HO.HMCFM 15:37
PROVIDERS: PCP Family Medicine; Visit Provider Family Medicine
DX: R74.8 Abnormal levels of other serum enzymes (principal); E78.00 Pure hypercholesterolemia, unspecified; Z87.898 Personal history of other specified conditions; W19.XXXA Unspecified fall, initial encounter; F41.9 Anxiety disorder, unspecified

== ENCOUNTER → 2024-10-07 15:37 | Outpatient (BNVA) | payer OTHER, SELFPAY | PROVIDERS: PCP Family Medicine; Visit Provider Family Medicine ==

== ENCOUNTER 2024-12-24 07:57 | Outpatient (REF) | payer OTHER, SELFPAY ==
--- NOTE | ~2024-12-24 | US_ITS ---
EXAMINATION: US ABDOMEN LIMITED WITH LIVER ELASTOGRAPHY HISTORY: R74.8 - Abnormal levels of other serum enzymes TECHNIQUE: Real-time grayscale ultrasound imaging of the right upper quadrant was performed and images were reviewed. COMPARISON: There are no prior studies available for comparison. FINDINGS: Liver: The right lobe of the liver measures 18.1 cm in size. The left lobe of the liver measures 10.9 cm in size. The liver demonstrates normal homogeneous echotexture. No focal mass or intrahepatic biliary ductal dilatation is identified. There is normal hepatopedal flow in the portal vein. Ultrasound elastography of the liver was performed with 10 separate measurements of the liver parenchyma with the patient in the supine position. Measurements were obtained approximately 2 cm below Angela's capsule and perpendicular to the capsule. The median shear wave velocity is 1.42 m/s. The interquartile range/median (IQR/median) is 0.21. Gallbladder and biliary tree: The gallbladder is unremarkable, without evidence of calculi, wall thickening, or pericholecystic fluid. There is no sonographic Olea sign. The common bile duct is not visualized. Right Kidney: The right kidney measures 12.4 cm in length. The right kidney is unremarkable, without evidence of masses, hydronephrosis, or calculi. Pancreas: The pancreas is obscured by bowel gas. There is no free fluid in the right upper quadrant. US/US abdomen bolden w elastography IMPRESSION: Hepatomegaly. The pancreas and common bile duct are not visualized. The median shear wave velocity in the liver is 1.42 m/s, corresponding to a median liver stiffness of 6.1 kPa. The IQR/median value is 0.21. This is indicative of a quality data set. Findings are indicative of a low elastography value which rules out advanced chronic liver disease in asymptomatic patients. REFERENCE: [employer] in Ultrasound Liver Stiffness Thresholds (2020): LIVER STIFFNESS THRESHOLDS: *Shear wave velocity less than 1.3 m/s (Liver Stiffness equal or less than 5 kPa): High probability of being normal. *Shear wave velocity less than 1.7 m/s (Liver Stiffness less than 9 kPa): In the absence of other known clinical signs, rules out compensated advanced chronic liver disease. *Shear wave velocity between 1.7-2.1 m/s (Liver Stiffness 9-13 kPa): Suggestive of compensated advanced chronic liver disease but need further test for confirmation. *Shear wave velocity between 2.1-2.4 m/s (Liver Stiffness 13-17 kPa): Rules in compensated advanced chronic liver disease. *Shear wave velocity greater than 2.4 m/s (Liver Stiffness over 17 kPa): Suggestive of clinically significant portal hypertension. QUALITY OF DATA SET: *IQR/Median value equal or less than 0.30 implies a quality data set. *IQR/Median value over 0.30 implies a poor quality data set. SIGNIFICANT CHANGE FROM PRIOR EXAM: Significant change if liver stiffness measurement is 10% or greater from prior exam. OTHER CONSIDERATIONS: The stage of liver fibrosis may be overestimated in the setting of acute hepatitis, liver inflammation, elevated liver function tests, hepatic vascular congestion, obstructive cholestasis, non-fasting state, and infiltrative diseases such as amyloidosis and lymphoma. In some patients with NAFLD, the liver stiffness thresholds for compensated advanced chronic liver disease may be lower. In causes other than viral hepatitis and NAFLD, liver stiffness thresholds are not well established. Electronically signed by: Bob Blevins MD 12/24/2024 08:35 AM EDT
--- OUTSIDE RECORDS SUMMARY | 2024-12-24 07:59 | XMS_ITS | Clinical Summary ---
Author Organization [facility] Address [address] [place] [address] Care Team Providers Care Buckle Sorter Name Role Phone Soraya Mccollum DO Primary Care Pro vider Encounters Date Type Department Care Team Description 10/06/2024 [facility] Neurodiagnostic [address] [place] [phone] Nataliya Montano MD Seizure disorder ([facility] V24, [facility] V28) 10/05/2024 [facility] Neurodiagnostic [address] [place] [phone] Nataliya Montano MD Seizure disorder ([facility] V24, [facility] V28) 10/02/2024 [facility] Neurodiagnostic [address] [place] [phone] Nataliya Montano MD Seizure disorder ([facility] V24, [facility] V28) from Last 3 Months Surgical History [...] Info) Description 01/04/2025 8:00 AM EDT Appointment [facility] Neurodiagnostic [address] [place] [address] 01/05/2025 9:00 AM EDT Appointment [facility] Neurodiagnostic [address] [place] [address] 01/06/2025 9:00 AM EDT Appointment [facility] Neurodiagnostic [address] [place] [address] Health Maintenance Due Date Last Done Comments DTaP,Tdap,and Td Vaccines (8 - Td or Tdap) 12/30/2016 12/30/2006, 11/24/1996, 12/22/1987, Additional history exists COVID-19 Vaccine (2 - Jennifer risk series) 08/27/2020 07/30/2020 Cholesterol Screening (Lipid Panel) 04/29/2022 HIV Screening 04/29/2022 Hepatitis C Screening 04/29/2022 Social Influencers of Health Screening 04/29/2022 Depression Screening 05/27/2024 Influenza Vaccine (#1) 2025 02/09/2015, 2006 HIB Vaccines Completed 03/17/1985 IPV Vaccines Completed [...] 5 Years) and At-Risk Patients (6 to 49 Years) Aged Out No longer eligible based on patient's age to complete this topic RSV Immunization Patients Under 20 months Aged Out No longer eligible based on patient's age to complete this topic Varicella Vaccines Aged Out No longer eligible based on patient's age to complete this topic Insurance [facility] Care Teams Buckle Sorter Relationship Specialty Start Date End Date Soraya Mccollum DO PCP - General Internal Medicine 11/09/15
== END 2024-12-24 07:58 | disposition home or self-care (01) ==
LOC: HO.US 07:57
PROVIDERS: PCP Family Medicine; Visit Provider Family Medicine
DX: R74.8 Abnormal levels of other serum enzymes (principal)
CPT/HCPCS: 76705; 76981

== ENCOUNTER → 2024-12-24 07:58 | Outpatient (BNV) | payer OTHER, SELFPAY | PROVIDERS: PCP Family Medicine; Visit Provider Radiology Diagnostic Radiology | DX: R16.0 Hepatomegaly, not elsewhere classified (principal) | CPT/HCPCS: 76705 ==

== ENCOUNTER → 2025-01-04 23:59 | Outpatient (BNV) | payer OTHER, SELFPAY | PROVIDERS: PCP Family Medicine; Visit Provider Psychiatry & Neurology Neurology | DX: G40.909 Epilepsy, unspecified, not intractable, without status epilepticus (principal) | CPT/HCPCS: 95721 ==